=== PATIENT | female | born 1940 | race Caucasian/White ===

== ENCOUNTER → 2016-10-23 | Outpatient (CLI) | payer MEDICARE, MEDICAID ==
[~2016-10-23] MED LIST: ACIDOPHILUS PO; ALLEGRA 180MG180 MG PO; ARTIFICIAL TEARS OP; ATENOLOL100 MG PO; CLOTRIMAZOLE/BE1 CRE TP; COLACE100 MG/10 PO; COZAAR50 MG PO; DIABETA2.5 MG PO; DIABETA5 MG PO; DIFLUCAN100 MG PO; DOXYCYCLINE 10100 MG PO; ELAVIL100 MG PO; HUMALOG100 U/ML SC; LANTUS100 U/ML SC; LEVAQUIN 250MG250 MG PO; LEVOTHYROXIN0.025 MG PO; LEXAPRO20 MG PO; LORTAB 5/500 501 TAB PO; NAPROSYN375 MG PO; OMEPRAZOLE D/R20 MG PO; PREVACID 30MG30 M1 PO; SEPTRA 400 MG-1 TAB PO; TENORMIN25 MG PO; VEGETABLE LAXAT1 TAB PO; [UNRECOGNIZED DRUG - OTHER] PO
== END ==
LOC: COL.PUL 13:01
DX: R06.02 Shortness of breath (principal)

== ENCOUNTER 2018-12-20 08:17 | Day surgery (SDC) | payer MEDICARE, MEDICAID ==
[~2018-12-20] VITALS: Ht 157.5 cm; Wt 120.0 kg
[2018-12-20] MEDS ORDERED: DITROPAN XL15 MG PO (09:46)
[2018-12-20] MEDS ORDERED: INSLANT SQ (09:47)
[2018-12-20] MEDS ORDERED: ZYRTEC 10MG10 MG PO (09:47)
[2018-12-20] MEDS ORDERED: LINZESS145CAP PO (09:48)
[2018-12-20] MEDS ORDERED: SYNTHROID0.1 MG/TAB PO (09:48)
[2018-12-20] MEDS ORDERED: NORCO 325 MG-51 TAB PO (09:48)
[2018-12-20] MEDS ORDERED: MIRALAX119G PO (09:49)
[2018-12-20] MEDS ORDERED: FLONASE NASAL S16 GM NS (09:50)
[2018-12-20] MEDS ORDERED: NOVLOG SQ (09:50)
[2018-12-20] MEDS ORDERED: CYMBALTA 30MG30 MG PO (09:51)
[2018-12-20] MEDS ORDERED: PRILOSEC 20MG20 MG PO (09:51)
[2018-12-20] MEDS ORDERED: TOPROL XL 50MG50 MG PO (09:52)
[2018-12-20] MEDS ORDERED: SINGULAIR 110 MG/TAB PO (09:52)
[2018-12-20] MEDS ORDERED: COZAAR100 MG PO (09:54)
[2018-12-20] MEDS ORDERED: PROAIR HFA0.09 MG/AC IH (09:56)
[2018-12-20] MEDS ORDERED: STOOL SOFTENER100 M2 PO (09:56)
[2018-12-20] MEDS ORDERED: MASON NATURAL500 MG PO (09:57)
[2018-12-20] MEDS ORDERED: PROBIOTIC FORMU1 CAP PO (09:58)
[2018-12-20] MEDS ORDERED: NYSTATIN CREAM15 GM TP (10:01)
[2018-12-20] MEDS ORDERED: METAMUCIL3.4 GM/DOS PO (10:01)
[2018-12-20] MEDS ORDERED: ANUSOL HC CREAM30 GM TP (10:02)
[2018-12-20 10:50] VITALS: BP 168/98; PULSE 82; TEMP 98.3
--- NOTE | 2018-12-20 10:50 | NUR ---
Pt to GI bay via cart from [employer]. Pt awake and alert. Pt denies pain or nausea. Sprite given per pt request. Warm blankets provided. No family or visitors here with pt at this time. Call light within reach.
[2018-12-20 11:05] VITALS: BP 173/76; PULSE 70
--- NOTE | 2018-12-20 11:05 | NUR ---
Pt continues to rest. Tolerating sprite without difficulties. Denies needs. Call light within reach.
--- NOTE | 2018-12-20 11:15 | NUR ---
Discharge instructions reviewed. Pt voices understanding. IV site discontinued with all parts intact. Pt up to dress with nurse assist. Call light within reach.
--- NOTE | 2018-12-20 11:30 | NUR ---
Pt escorted to private car via wheel chair. Pt accompanied home by her friend.
[2018-12-20 14:33] VITALS: BP 173/79; PULSE 74; TEMP 97.6
== END 2018-12-20 11:43 | disposition home or self-care (01) ==
LOC: SDCO 08:17
DX: K29.30 Chronic superficial gastritis without bleeding (principal); K31.7 Polyp of stomach and duodenum; Z86.010 Personal history of colon polyps; Z90.710 Acquired absence of both cervix and uterus; Z96.653 Presence of artificial knee joint, bilateral; K59.09 Other constipation; E78.00 Pure hypercholesterolemia, unspecified; K58.9 Irritable bowel syndrome, unspecified; G47.33 Obstructive sleep apnea (adult) (pediatric); I10 Essential (primary) hypertension; E11.42 Type 2 diabetes mellitus with diabetic polyneuropathy; J44.9 Chronic obstructive pulmonary disease, unspecified; F32.9 Major depressive disorder, single episode, unspecified; E03.9 Hypothyroidism, unspecified; Z83.3 Family history of diabetes mellitus; Z83.71 Family history of colonic polyps; Z80.0 Family history of malignant neoplasm of digestive organs; Z79.4 Long term (current) use of insulin; Z79.51 Long term (current) use of inhaled steroids; Z88.5 Allergy status to narcotic agent; Z88.1 Allergy status to other antibiotic agents; Z91.040 Latex allergy status; Z88.8 Allergy status to other drugs, medicaments and biological substances; Z88.6 Allergy status to analgesic agent; Z88.0 Allergy status to penicillin; Z88.2 Allergy status to sulfonamides
CPT/HCPCS: J2704; J7030